=== PATIENT | female | born 1985 | race American Indian/Alaskan Native ===

== ENCOUNTER 2019-01-14 14:55 | Outpatient (CLI) | payer OTHER | END 2019-01-14 15:35 | disposition home or self-care (01) | LOC: NST 14:55 | DX: Z34.82 Encounter for supervision of other normal pregnancy, second trimester (principal) ==

== ENCOUNTER 2019-03-24 11:58 | Outpatient (CLI) | payer OTHER | END 2019-03-24 12:42 | disposition home or self-care (01) | LOC: NST 11:58 | DX: O35.8XX0 Maternal care for other (suspected) fetal abnormality and damage, not applicable or unspecified (principal); Z3A.33 33 weeks gestation of pregnancy ==

== ENCOUNTER 2019-04-24 14:42 | Inpatient (IN) | payer OTHER ==
[~2019-04-24] VITALS: Ht 167.6 cm; Wt 3.6 kg
[2019-05-01] MEDS ORDERED: PRENATE ELITE1 EAC2 (15:11)
== END 2019-05-10 12:01 | DRG 788 ==
LOC: OB/GYN 05-07 09:00 → O/R 05-07 09:40 → OB/GYN 05-07 09:40
PROVIDERS: ADMIT Obstetrics & Gynecology Maternal & Fetal Medicine
PROC: 0DNW0ZZ Release Peritoneum, Open Approach (ICD-10-PCS; 2019-05-07)
PROC: 4A1HXCZ Monitoring of Products of Conception, Cardiac Rate, External Approach (ICD-10-PCS; 2019-05-07)
PROC: 4A033R1 Measurement of Arterial Saturation, Peripheral, Percutaneous Approach (ICD-10-PCS; 2019-05-07)
PROC: 10D00Z1 Extraction of Products of Conception, Low, Open Approach (ICD-10-PCS; principal; 2019-05-07 09:00)
DX: O82 Encounter for cesarean delivery without indication (principal); O34.211 Maternal care for low transverse scar from previous cesarean delivery; O99.89 Other specified diseases and conditions complicating pregnancy, childbirth and the puerperium; N73.6 Female pelvic peritoneal adhesions (postinfective); Z3A.38 38 weeks gestation of pregnancy; Z37.0 Single live birth

== ENCOUNTER 2021-06-15 09:45 | Inpatient (IN) | payer OTHER ==
[~2021-06-15] VITALS: Ht 165.1 cm; Wt 3.2 kg
[~2021-06-15 09:45] MED LIST: PRENATE ELITE1 EAC2
== END 2021-06-20 14:41 | disposition home or self-care (01) | DRG 785 ==
LOC: SURH 06-17 09:45 → LDR 06-17 13:25 → OB/GYN 06-17 21:28
PROVIDERS: ADMIT Obstetrics & Gynecology; ATTEND Obstetrics & Gynecology
PROC: 0UB70ZZ Excision of Bilateral Fallopian Tubes, Open Approach (ICD-10-PCS; 2021-06-17)
PROC: 4A1HXCZ Monitoring of Products of Conception, Cardiac Rate, External Approach (ICD-10-PCS; 2021-06-17)
PROC: 10D00Z1 Extraction of Products of Conception, Low, Open Approach (ICD-10-PCS; principal; 2021-06-17 16:30)
DX: O34.211 Maternal care for low transverse scar from previous cesarean delivery (principal); Z3A.39 39 weeks gestation of pregnancy; Z20.822 Contact with and (suspected) exposure to COVID-19; Z30.2 Encounter for sterilization